=== PATIENT | female | born 1995 | race Caucasian/White ===

== ENCOUNTER 2024-08-12 08:10 | Inpatient (IN) | payer OTHER ==
[2024-08-18] MEDS ORDERED: Misoprostol 200 MCG TAB PR PRN (06:04)
[2024-08-18] MEDS ORDERED: Docusate 100 MG CAP PO PRN (06:04)
[2024-08-18] MEDS ORDERED: Promethazine HCl 25 MG/ML VIAL IM PRN ×2 (06:04→12:42)
[2024-08-18] MEDS ORDERED: Ibuprofen 800 MG TAB PO PRN (06:04)
[2024-08-18] MEDS ORDERED: Lidocaine 1% (PF) 30 ML VIAL SC PRN (06:04)
[2024-08-18] MEDS ORDERED: HYDROcodone/Acetaminophen 5/325 mg Tablet PO PRN ×2 (06:04)
[2024-08-18] MEDS ORDERED: Carboprost 250 MCG/ML AMP IM PRN (06:04)
[2024-08-18] MEDS ORDERED: Ondansetron PF 4 MG/2 ML Vial IVP PRN ×2 (06:04→21:01)
[2024-08-18] MEDS ORDERED: hydrALAZINE 20 MG/ML VIAL SLOW IVP PRN ×2 (06:04→21:01)
[2024-08-18] MEDS ORDERED: Diphenoxylate HCl/Atropine Tablet PO PRN ×2 (06:04)
[2024-08-18] MEDS ORDERED: Acetaminophen 500 MG TAB PO PRN (06:04)
[2024-08-18] MEDS ORDERED: Methylergonovine 0.2 MG/ML VIAL IM PRN ×2 (06:04→21:01)
[2024-08-18] MEDS ORDERED: fentaNYL 50 mcg/mL 1 mL Vial SLOW IVP PRN (06:04)
[2024-08-18] MEDS ORDERED: Oxytocin 30 units/NS 500 ML 500 ML IV SCH ×2 (06:15)
[2024-08-18] MEDS: Lactated Ringer's 1,000 ML IV SCH (06:20)
[2024-08-18 06:33] VITALS: BMI 36.8
[2024-08-18 07:06] LABS: Hematocrit 30.6 % (34.9-44.5); Hemoglobin 9.9 g/dL (12.0-15.5); Mean Corpuscular HGB CONC 32.4 g/dL (32.0-36.0); Mean Corpuscular Volume 83.6 fL (81.6-98.3); Platelet Count 266 10x3/uL (150-450); Red Blood Cell (RBC) Count 3.66 10x6/uL (3.90-5.03)
[2024-08-18] MEDS: Oxytocin 30 units/NS 500 ML 500 ML IV SCH (07:28)
[2024-08-18 07:44] LABS: HBsAg Index 0.23 S/CO (0-0.99); HIV (1/2) Antibody/Antigen Non-Reactive (NonReactive); HIV 1/2 INDEX 0.13 S/CO (<1.00); Hep B Surf Ag - L&D Non-Reactive S/CO (NonReactive)
[2024-08-18 07:45] LABS: Syphilis Antibody Nonreactive (Nonreactive); Syphilis Antibody Index 0.05 S/CO (<1.00 Non-Reactive)
[2024-08-18] MEDS ORDERED: Moisturizing Cream (Eucerin) 113 GM JAR TOP PRN (12:42)
[2024-08-18] MEDS ORDERED: Lactated Ringer's 500 ML IV PRN (12:42)
[2024-08-18] MEDS ORDERED: diphenhydrAMINE 50 MG/ML VIAL IVP PRN (12:42)
[2024-08-18] MEDS ORDERED: Acetaminophen 325 MG TAB PO PRN (12:42)
[2024-08-18] MEDS ORDERED: Naloxone HCl 0.4 mg/ml Vial IVP PRN ×2 (12:42)
[2024-08-18] MEDS ORDERED: Communication Order-Pharmacy FS SCH (12:45)
[2024-08-18] MEDS: fentaNYL 2 mcg/Ropivacaine 0.2% Epidural 100 ML CADD EPIDURAL SCH (14:26)
[2024-08-18] MEDS: ePHEDrine Sulfate 50 MG/10 ML VIAL SLOW IVP PRN (14:39)
[2024-08-18] MEDS: Ondansetron PF 4 MG/2 ML Vial IVP PRN (15:10)
[2024-08-18] MEDS ORDERED: Lanolin Ointment 7 GM TUBE TOP PRN (21:01)
[2024-08-18] MEDS ORDERED: Preparation H Ointment 28 GM TUBE PR PRN (21:01)
[2024-08-18] MEDS ORDERED: diphenhydrAMINE 25 MG CAP PO PRN (21:01)
[2024-08-18] MEDS ORDERED: Bisacodyl 10 MG SUPP PR PRN (21:01)
[2024-08-18] MEDS ORDERED: Zolpidem Tartrate 5 MG TAB PO PRN (21:01)
[2024-08-18] MEDS ORDERED: Misoprostol 200 MCG TAB VAG PRN (21:01)
[2024-08-18] MEDS ORDERED: Milk Of Magnesia 30 ML UDCUP PO PRN (21:01)
[2024-08-18] MEDS ORDERED: Witch Hazel 100 PAD JAR TOP PRN (21:03)
[2024-08-19] MEDS: Ibuprofen 800 MG TAB PO SCH (02:46)
[2024-08-19] MEDS: Benzocaine-Menthol 82.5 ML CAN TOP PRN (02:47)
[2024-08-19] MEDS: HYDROcodone/Acetaminophen 5/325 mg Tablet PO PRN ×2 (03:07→11:22)
[2024-08-19] MEDS: Boostrix 0.5 ML (Tdap) VIAL (>/=7 yrs of age) IM ONE (03:48)
[2024-08-19] MEDS ORDERED: Bupivacaine 0.25% HCL 30 ML VIAL ONE (07:00)
[2024-08-19] MEDS ORDERED: ePHEDrine Sulfate 50 MG/10 ML VIAL ONE (07:00)
[2024-08-19] MEDS ORDERED: Bupivacaine PF 0.5% 30 ML VIAL ONE (07:00)
[2024-08-19] MEDS: Prenatal Vitamin 1 TAB PO SCH (08:28)
[2024-08-19] MEDS: Docusate 100 MG CAP PO SCH (08:28)
[2024-08-19] MEDS: Ferrous Sulfate 325 MG TAB PO SCH (08:28)
[2024-08-19] MEDS: Dextrose 5%-Lactated Ringers 1,000 ML IV SCH (13:45)
[2024-08-19 13:53] LABS: Hematocrit 28.2 % (34.9-44.5); Hemoglobin 8.7 g/dL (12.0-15.5)
[2024-08-20 08:08] VITALS: BP 106/57; TEMP 97.7
== END 2024-08-20 12:40 | disposition home or self-care (01) | DRG 807 ==
LOC: CSHLD 08-18 05:52 → CSHPP 08-19 01:45
PROVIDERS: ADMIT Obstetrics & Gynecology; ATTEND Obstetrics & Gynecology
PROC: 10D07Z6 Extraction of Products of Conception, Vacuum, Via Natural or Artificial Opening (ICD-10-PCS; principal; 2024-08-18)
PROC: 10H07YZ Insertion of Other Device into Products of Conception, Via Natural or Artificial Opening (ICD-10-PCS; 2024-08-18)
PROC: 10907ZC Drainage of Amniotic Fluid, Therapeutic from Products of Conception, Via Natural or Artificial Opening (ICD-10-PCS; 2024-08-18)
PROC: 0UQMXZZ Repair Vulva, External Approach (ICD-10-PCS; 2024-08-18)
DX: O99.02 Anemia complicating childbirth (principal); Z37.0 Single live birth; Z3A.39 39 weeks gestation of pregnancy; D64.9 Anemia, unspecified; O76 Abnormality in fetal heart rate and rhythm complicating labor and delivery; O71.82 Other specified trauma to perineum and vulva
CPT/HCPCS: 36415; 85014; 85018; 85027; 86780; 86850; 86900; 86901; 87340; 87389; J0665; J2405; J2590; J7120